=== PATIENT | male | born 1945 | race African-American/Black ===

== ENCOUNTER 2017-02-04 13:18 | Emergency (ER) | payer MEDICARE, OTHER ==
[~2017-02-04] VITALS: Ht 175.3 cm; Wt 81.0 kg
[2017-02-04] MEDS ORDERED: LISINOPRIL 10MG TABLET PO ONE (14:45)
[2017-02-04 16:11] VITALS: BP 160/84
== END 2017-02-04 16:12 | disposition home or self-care (01) ==
LOC: ER 13:20
DX: I10 Essential (primary) hypertension (principal)
CPT/HCPCS: 99283

== ENCOUNTER 2018-11-28 00:55 | Inpatient (IN) | payer MEDICARE, MEDICAID ==
[~2018-11-28] VITALS: Ht 175.3 cm; Wt 77.8 kg
[2018-11-28] MEDS ORDERED: SODIUM CHLORIDE 0.9% 1,000 ML IV ONE (01:41)
[2018-11-28] MEDS ORDERED: DEXTROSE 50% WATER 50ML SYRINGE IV ONE (02:00)
[2018-11-28] MEDS ORDERED: DEXTROSE 50% WATER 50ML SYRINGE IV SCH (02:15)
[2018-11-28 02:18] LABS: HEMATOCRIT. 22.9 % (42.0-52.0); HEMOGLOBIN. 8.1 g/dL (14.0-18.0); MEAN CORPUSCULAR HEMOGLOBIN 40.9 pg (28.0-32.0); MEAN CORPUSCULAR VOLUME 115.1 fL (80.0-94.0); MEAN PLATELET VOLUME 6.3 fl (7.4-10.4); PLATELET 257 x1000/uL (130-400); RED BLOOD CELL COUNT 1.99 mill/uL (4.7-6.1); RED CELL DISTRIBUTION WIDTH 13.4 % (11.6-14.6)
[2018-11-28 02:19] LABS: CHLORIDE 109 mEq/L (98-107)
[2018-11-28 02:24] LABS: ETHANOL BLOOD < 10 mg/dL
[2018-11-28 03:29] LABS: PLATELET ESTIMATE NORMAL
[2018-11-28 04:26] LABS: CLARITY URINE CLEAR (CLEAR); COLOR URINE YELLOW (YELLOW); KETONES URINE NEGATIVE (NEGATIVE); LEUKOCYTE ESTERASE URINE NEGATIVE (NEGATIVE); NITRITE URINE NEGATIVE (NEGATIVE); OCCULT BLOOD URINE NEGATIVE (NEGATIVE); PROTEIN URINE NEGATIVE (NEGATIVE); SPECIFIC GRAVITY URINE 1.011 (1.005-1.030); UROBILINOGEN URINE 0.2 E.U./dL (0.2-1.0)
[2018-11-28 04:39] LABS: *AMPHETAMINES SCREEN URINE NEGATIVE (NEGATIVE); *BARBITURATES SCREEN URINE NEGATIVE (NEGATIVE); *BENZODIAZEPINES SCREEN URINE NEGATIVE (NEGATIVE); *COCAINE SCREEN URINE NEGATIVE (NEGATIVE); METHADONE URINE SCREEN NEGATIVE (NEGATIVE)
[2018-11-28 04:40] LABS: CANNABINOID URINE SCREEN PRESUMTIVE POSITIVE (NEGATIVE); OPIATES URINE SCREEN PRESUMTIVE POSITIVE (NEGATIVE); PHENCYCLIDINE URINE SCREEN NEGATIVE (NEGATIVE)
[2018-11-28 05:10] VITALS: BP 98/44
[2018-11-28 08:00] VITALS: BP 98/51
[2018-11-28] MEDS ORDERED: ONDANSETRON HCL 4MG/2ML INJ IV PRN (08:00)
[2018-11-28] MEDS ORDERED: FILGRASTIM 300 MCG/ML VIAL SUBCUT SCH (08:00)
[2018-11-28] MEDS ORDERED: FILGRASTIM-TBO 300 MCG/0.5 ML SYRINGE SQ SCH (09:00)
[2018-11-28] MEDS: ASPIRIN 81MG EC TABLET PO SCH (09:00)
[2018-11-28 09:38] LABS: T4 FREE 1.01 ng/dL (0.76-1.46)
[2018-11-28] MEDS: ENOXAPARIN 40MG/0.4ML SYR SUBCUT SCH (11:30)
[2018-11-28] MEDS ORDERED: GADOBENATE DIMEGLUMINE 529 MG/ML 10ML IV ONE (12:15)
[2018-11-28] MEDS ORDERED: MORP30TA66 PO (12:54)
[2018-11-28] MEDS ORDERED: DOCU-150 PO (12:54)
[2018-11-28] MEDS ORDERED: PROC10TA17 PO (12:54)
[2018-11-28] MEDS ORDERED: CITA10TA9 PO (12:54)
[2018-11-28] MEDS ORDERED: SENN8.6T60 PO (12:54)
[2018-11-28] MEDS ORDERED: TRAZ-212 PO (12:54)
[2018-11-28] MEDS ORDERED: LORA0.5T2 PO (12:54)
[2018-11-28] MEDS ORDERED: ACETAMIN (12:54)
[2018-11-28] MEDS ORDERED: DIVA250T45 PO (12:54)
[2018-11-28] MEDS ORDERED: ASPI-1159 PO (12:54)
[2018-11-28] MEDS ORDERED: OXYC-515 MT (12:54)
[2018-11-28] MEDS ORDERED: FERR15DR7 PO (12:54)
[2018-11-28] MEDS ORDERED: TERA10CA4 PO (12:54)
[2018-11-28] MEDS ORDERED: SILD20TA PO (12:54)
[2018-11-28] MEDS ORDERED: GABA-531 PO (12:54)
[2018-11-28] MEDS ORDERED: CEPH500C2 PO (12:54)
[2018-11-28 13:00] VITALS: BP 112/52
[2018-11-28] MEDS: LORAZEPAM 2MG/ML CPJ IV PRN ×3 (13:43→22:28)
[2018-11-28] MEDS: THIAMINE HCL 100MG TABLET PO SCH (13:43)
[2018-11-28] MEDS: SODIUM CHLORIDE 0.9% 1,000 ML IV SCH ×2 (14:03→17:57)
[2018-11-28] MEDS: HYDROCODONE/ACETAMINOPHEN 5/325MG TABLET PO PRN ×2 (14:21→22:27)
[2018-11-28 16:00] VITALS: BP 132/54
[2018-11-28 16:55] LABS: CREATINE KINASE 66 IU/L (39-308)
[2018-11-28 16:56] LABS: CREATINE KINASE MB FRACTION < 1.0 ng/mL (0.5-3.6)
[2018-11-28] MEDS ORDERED: PROCHLORPERAZINE MALEATE 10MG TABLET PO PRN (19:00)
[2018-11-28] MEDS ORDERED: SENNOSIDES 8.6MG TABLET PO PRN (19:00)
[2018-11-28] MEDS ORDERED: SILDENAFIL CITRATE 20MG TABLET PO SCH ×2 (19:00→22:00)
[2018-11-28 20:00] VITALS: BP 152/50
[2018-11-28] MEDS ORDERED: MEDICATION NOT ON FORMULARY EA (Cephalexin Monohydrate (Cephalexin) 500 MG) PO SCH (20:45)
[2018-11-28] MEDS ORDERED: MEDICATION NOT ON FORMULARY EA (Trazodone Hcl 50 MG) PO SCH (20:45)
[2018-11-28] MEDS ORDERED: MEDICATION NOT ON FORMULARY EA (Oxycodone Hcl/Acetaminophen (Oxycodone-Acetaminophen 10- MT PRN (20:45)
[2018-11-28] MEDS ORDERED: LORAZEPAM 0.5 MG PO PRN (20:45)
[2018-11-28] MEDS ORDERED: MEDICATION NOT ON FORMULARY EA (Docusate Sodium 100 MG) PO SCH (20:45)
[2018-11-28] MEDS ORDERED: MEDICATION NOT ON FORMULARY EA (Citalopram Hydrobromide (Citalopram Hbr) 10 MG) PO SCH (20:45)
[2018-11-28] MEDS ORDERED: ZOLPIDEM TARTRATE 5MG TABLET PO PRN (20:45)
[2018-11-28] MEDS ORDERED: MEDICATION NOT ON FORMULARY EA (Terazosin Hcl 10 MG) PO SCH (21:00)
[2018-11-28] MEDS ORDERED: MEDICATION NOT ON FORMULARY EA (Gabapentin 300 MG) PO SCH (21:00)
[2018-11-28] MEDS ORDERED: LORAZEPAM 0.5MG TABLET PO PRN (21:45)
[2018-11-28] MEDS ORDERED: OXYCODONE HCL/ACETAMINOPHEN 5/325MG TABLET PO PRN (22:00)
[2018-11-28] MEDS ORDERED: TRAZODONE HCL 50MG TABLET PO PRN (22:00)
[2018-11-28] MEDS: FERROUS SULFATE 325MG TABLET PO SCH (22:27)
[2018-11-29] VITALS: BP 121/51
[2018-11-29] MEDS: SODIUM CHLORIDE 0.9% 1,000 ML IV SCH ×2 (03:52→08:51)
[2018-11-29 06:27] LABS: CHLORIDE 109 mEq/L (98-107)
[2018-11-29 06:37] LABS: CREATINE KINASE 69 IU/L (39-308)
[2018-11-29 06:40] LABS: CREATINE KINASE MB FRACTION < 1.0 ng/mL (0.5-3.6)
[2018-11-29 08:00] VITALS: BP 115/70
[2018-11-29] MEDS: THIAMINE HCL 100MG TABLET PO SCH (08:38)
[2018-11-29] MEDS: DIVALPROEX SODIUM 250MG ER TABLET PO SCH ×2 (08:39→08:52)
[2018-11-29] MEDS: FERROUS SULFATE 325MG TABLET PO SCH (08:39)
[2018-11-29] MEDS: ENOXAPARIN 40MG/0.4ML SYR SUBCUT SCH (08:42)
[2018-11-29] MEDS: ASPIRIN 81MG EC TABLET PO SCH (08:42)
[2018-11-29] MEDS ORDERED: DOCUSATE SODIUM 100MG CAPSULE PO SCH (09:00)
[2018-11-29] MEDS ORDERED: CITALOPRAM HYDROBROMIDE 10MG TABLET PO SCH (09:00)
[2018-11-29] MEDS ORDERED: MEDICATION NOT ON FORMULARY EA (Morphine Sulfate 30 MG) PO SCH (09:00)
[2018-11-29] MEDS ORDERED: FERROUS SULFATE 65 MG PO SCH (09:00)
[2018-11-29] MEDS ORDERED: MORPHINE SULFATE 30MG TABLET SR PO SCH (09:00)
[2018-11-29 09:24] LABS: BASOPHILS % 0.3 % (0.0-2.0); EOSINOPHILS % 0.1 % (0.0-5.0); HEMATOCRIT. 26.9 % (42.0-52.0); HEMOGLOBIN. 9.2 g/dL (14.0-18.0); LYMPHOCYTES % 9.1 % (20.0-50.0); MEAN CORPUSCULAR HEMOGLOBIN 36.1 pg (28.0-32.0); MEAN PLATELET VOLUME 7.4 fl (7.4-10.4); MONOCYTES % 6.4 % (2.0-8.0); NEUTROPHILS % 84.1 % (40.0-76.0); PLATELET 220 x1000/uL (130-400); RED BLOOD CELL COUNT 2.53 mill/uL (4.7-6.1); RED CELL DISTRIBUTION WIDTH 13.3 % (11.6-14.6)
[2018-11-29] MEDS: LORAZEPAM 2MG/ML CPJ IV PRN (09:24)
[2018-11-29] MEDS: CEPHALEXIN 250MG CAPSULE PO SCH ×2 (09:30→12:26)
[2018-11-29 12:00] VITALS: BP 130/72
[2018-11-29] MEDS ORDERED: TERAZOSIN HCL 5MG CAPSULE PO SCH (21:00)
[2018-11-29] MEDS ORDERED: GABAPENTIN 300MG CAPSULE PO SCH (21:00)
== END 2018-11-29 13:13 | disposition home or self-care (01) | DRG 73 ==
LOC: ER 00:55 → EDBEDREQTM 02:40 → EDBEDREQ 02:40 → ENRESERV 03:40 → EDBEDREQ 04:50 → EDBEDREQTM 04:50 → 6WST 05:26
PROVIDERS: ADMIT Internal Medicine Nephrology; ATTEND Internal Medicine Nephrology
DX: G90.8 Other disorders of autonomic nervous system (principal); E43 Unspecified severe protein-calorie malnutrition; C15.9 Malignant neoplasm of esophagus, unspecified; C78.00 Secondary malignant neoplasm of unspecified lung; C78.7 Secondary malignant neoplasm of liver and intrahepatic bile duct; E46 Unspecified protein-calorie malnutrition; E86.9 Volume depletion, unspecified; D63.8 Anemia in other chronic diseases classified elsewhere; D70.9 Neutropenia, unspecified; Z51.5 Encounter for palliative care; F17.210 Nicotine dependence, cigarettes, uncomplicated; I10 Essential (primary) hypertension; J44.9 Chronic obstructive pulmonary disease, unspecified; N40.0 Benign prostatic hyperplasia without lower urinary tract symptoms; W19.XXXA Unspecified fall, initial encounter; Y93.89 Activity, other specified; Y92.89 Other specified places as the place of occurrence of the external cause; Y99.8 Other external cause status; Z92.21 Personal history of antineoplastic chemotherapy; Z79.82 Long term (current) use of aspirin; Z79.899 Other long term (current) drug therapy; Z68.25 Body mass index [BMI] 25.0-25.9, adult
CPT/HCPCS: 36415; 70553; 71045; 78582; 80048; 80061; 80305; 80320; 82140; 82550; 82553; 82962; 83036; 83605; 83735; 83880; 84439; 84443; 84484; 85379; 93005; 93306; 93970; 97162; 99285; A9558; A9577; J1442; J1650; J2060; J7030; G0480

== ENCOUNTER 2019-01-01 18:50 | Inpatient (IN) | payer MEDICARE, MEDICAID ==
[~2019-01-01] VITALS: Ht 162.6 cm; Wt 62.6 kg
[~2019-01-01 18:50] MED LIST: ACETAMIN; ASPI-1159 PO; CEPH500C2 PO; CITA10TA9 PO; DIVA250T45 PO; DOCU-150 PO; FERR15DR7 PO; GABA-531 PO; LORA0.5T2 PO; MORP30TA66 PO; OXYC-515 MT; PROC10TA17 PO; SENN8.6T60 PO; SILD20TA PO; TERA10CA4 PO; TRAZ-212 PO
[2019-01-01] MEDS ORDERED: ONDANSETRON HCL 4MG/2ML INJ IV STA (22:16)
[2019-01-01] MEDS ORDERED: MORPHINE SULFATE 4 MG/ML CPJ (NOT FOR IM USE) IV STA (22:16)
[2019-01-01] MEDS ORDERED: SODIUM CHLORIDE 0.9% 1,000 ML IV ONE (22:16)
[2019-01-02 00:54] LABS: CHLORIDE 102 mEq/L (98-107)
[2019-01-02 01:14] LABS: BASOPHILS % 0.7 % (0.0-2.0); EOSINOPHILS % 0.6 % (0.0-5.0); HEMOGLOBIN. 9.5 g/dL (14.0-18.0); LYMPHOCYTES % 36.8 % (20.0-50.0); MEAN CORPUSCULAR HEMOGLOBIN 31.4 pg (28.0-32.0); MEAN CORPUSCULAR VOLUME 92.9 fL (80.0-94.0); MONOCYTES % 10.5 % (2.0-8.0); NEUTROPHILS % 51.4 % (40.0-76.0); PLATELET 325 x1000/uL (130-400); RED BLOOD CELL COUNT 3.01 mill/uL (4.7-6.1); RED CELL DISTRIBUTION WIDTH 12.9 % (11.6-14.6)
[2019-01-02] MEDS ORDERED: LORAZEPAM 2MG/ML CPJ IV ONE (01:15)
[2019-01-02 01:26] LABS: CLARITY URINE CLOUDY (CLEAR); COLOR URINE DARK YELLOW (YELLOW); KETONES URINE TRACE (NEGATIVE); LEUKOCYTE ESTERASE URINE 2+ (NEGATIVE); NITRITE URINE POSITIVE (NEGATIVE); OCCULT BLOOD URINE TRACE (NEGATIVE); PH URINE 5.5 (4.5-8.0); PROTEIN URINE TRACE (NEGATIVE); SPECIFIC GRAVITY URINE 1.024 (1.005-1.030)
[2019-01-02] MEDS ORDERED: CEFTRIAXONE 1 G PREMIX 50 ML IV ONE (01:45)
[2019-01-02 01:54] LABS: INR 1.1; PARTIAL THROMBOPLASTIN TIME 27.6 sec (23.4-31.0); PROTHROMBIN TIME 11.3 sec (9.6-11.0)
[2019-01-02 06:40] VITALS: BP 130/80
[2019-01-02 08:00] VITALS: BP 158/68
[2019-01-02] MEDS ORDERED: DEXTROSE 5% WATER 1,000 ML IV SCH (08:00)
[2019-01-02] MEDS ORDERED: DIPHENHYDRAMINE 50MG/ML VIAL IV PRN (08:30)
[2019-01-02] MEDS ORDERED: ONDANSETRON HCL 4MG/2ML INJ IV PRN (08:30)
[2019-01-02] MEDS ORDERED: HYDROCODONE/ACETAMINOPHEN 5/325MG TABLET PO PRN (08:30)
[2019-01-02] MEDS ORDERED: ACETAMINOPHEN 650MG SUPP PR PRN (08:30)
[2019-01-02] MEDS ORDERED: GUAIFENESIN 200MG/10ML SUGAR FREE UDC PO PRN (08:30)
[2019-01-02] MEDS ORDERED: CLONIDINE 0.1MG TABLET PO PRN (08:30)
[2019-01-02] MEDS ORDERED: ACETAMINOPHEN 325MG TABLET PO PRN (08:30)
[2019-01-02] MEDS ORDERED: ACETAMINOPHEN 650MG/20.3ML UDC GT PRN (08:30)
[2019-01-02] MEDS ORDERED: IPRATROPIUM/ALBUTEROL 0.5-3(2.5)MG/3ML NEB INH PRN (08:30)
[2019-01-02] MEDS ORDERED: NA PHOS,M-B/NA PHOS,DI-BA ENEMA 118ML PR PRN (10:00)
[2019-01-02] MEDS ORDERED: DOCUSATE SODIUM 100MG CAPSULE PO PRN (10:00)
[2019-01-02] MEDS ORDERED: MAGNESIUM/ALUMINUM HYDROXIDE/SIMETHICONE 30ML UDC PO PRN (10:00)
[2019-01-02] MEDS: DEXT 5%/0.45% NACL 1000ML 1,000 ML IV SCH (10:27)
[2019-01-02] MEDS: ENOXAPARIN 40MG/0.4ML SYR SUBCUT SCH (10:29)
[2019-01-02 10:55] VITALS: BP 158/68
[2019-01-02 11:59] LABS: BASOPHILS % 0.6 % (0.0-2.0); EOSINOPHILS % 0.2 % (0.0-5.0); HEMATOCRIT. 30.4 % (42.0-52.0); HEMOGLOBIN. 10.3 g/dL (14.0-18.0); MEAN CORPUSCULAR HEMOGLOBIN 31.3 pg (28.0-32.0); MEAN CORPUSCULAR VOLUME 92.6 fL (80.0-94.0); MEAN PLATELET VOLUME 6.7 fl (7.4-10.4); NEUTROPHILS % 61.2 % (40.0-76.0); PLATELET 342 x1000/uL (130-400); RED BLOOD CELL COUNT 3.28 mill/uL (4.7-6.1)
[2019-01-02 12:00] VITALS: BP 117/68
[2019-01-02 12:07] LABS: CHLORIDE 102 mEq/L (98-107)
[2019-01-02 13:11] LABS: *AMPHETAMINES SCREEN URINE NEGATIVE (NEGATIVE); CANNABINOID URINE SCREEN PRESUMTIVE POSITIVE (NEGATIVE); METHADONE URINE SCREEN NEGATIVE (NEGATIVE); OPIATES URINE SCREEN PRESUMTIVE POSITIVE (NEGATIVE); PHENCYCLIDINE URINE SCREEN NEGATIVE (NEGATIVE)
[2019-01-02 13:12] LABS: *BENZODIAZEPINES SCREEN URINE PRESUMTIVE POSITIVE (NEGATIVE); *COCAINE SCREEN URINE NEGATIVE (NEGATIVE)
[2019-01-02 13:13] LABS: *BARBITURATES SCREEN URINE NEGATIVE (NEGATIVE)
[2019-01-02 16:00] VITALS: BP 145/82
[2019-01-02] MEDS ORDERED: SENNOSIDES 8.6MG TABLET PO PRN (17:30)
[2019-01-02] MEDS ORDERED: MEDICATION NOT ON FORMULARY EA (Oxycodone Hcl/Acetaminophen (Oxycodone-Acetaminophen 10- MT PRN (17:30)
[2019-01-02] MEDS ORDERED: PROCHLORPERAZINE MALEATE 10MG TABLET PO PRN (17:30)
[2019-01-02] MEDS ORDERED: SILDENAFIL CITRATE 20MG TABLET PO SCH (17:30)
[2019-01-02] MEDS: SODIUM CHLORIDE 0.9% INJ 3ML FLUSH IVF SCH ×2 (17:53→22:06)
[2019-01-02] MEDS ORDERED: LORAZEPAM 0.5MG TABLET PO PRN (18:15)
[2019-01-02] MEDS: DOCUSATE SODIUM 100MG CAPSULE PO SCH (18:49)
[2019-01-02] MEDS: DIVALPROEX SODIUM 125MG EC TABLET PO SCH (20:00)
[2019-01-02] MEDS: TERAZOSIN HCL 5MG CAPSULE PO SCH ×2 (21:00→21:20)
[2019-01-02] MEDS: GABAPENTIN 300MG CAPSULE PO SCH ×2 (21:00→21:20)
[2019-01-02] MEDS: CITALOPRAM HYDROBROMIDE 10MG TABLET PO SCH (21:19)
[2019-01-02] MEDS: MORPHINE SULFATE 30MG TABLET SR PO SCH (21:20)
[2019-01-02] MEDS: CEFTRIAXONE 1 G PREMIX 50 ML IV SCH (21:48)
[2019-01-02] MEDS ORDERED: MIRT30TA PO (22:35)
[2019-01-03 00:13] VITALS: BP 124/69
[2019-01-03] MEDS: DEXT 5%/0.45% NACL 1000ML 1,000 ML IV SCH ×2 (00:42→18:02)
[2019-01-03 04:23] VITALS: BP 126/63
[2019-01-03] MEDS: SODIUM CHLORIDE 0.9% INJ 3ML FLUSH IVF SCH ×2 (06:00→18:02)
[2019-01-03 08:00] VITALS: BP 148/74
[2019-01-03] MEDS ORDERED: ASPIRIN 81MG TABLET PO SCH (09:00)
[2019-01-03] MEDS ORDERED: FERROUS SULFATE 325MG TABLET PO SCH (09:00)
[2019-01-03] MEDS: DOCUSATE SODIUM 100MG CAPSULE PO SCH ×2 (09:11→18:02)
[2019-01-03] MEDS: CITALOPRAM HYDROBROMIDE 10MG TABLET PO SCH (09:11)
[2019-01-03] MEDS: MORPHINE SULFATE 30MG TABLET SR PO SCH ×2 (09:12→20:13)
[2019-01-03] MEDS: ENOXAPARIN 40MG/0.4ML SYR SUBCUT SCH ×2 (09:12→09:33)
[2019-01-03 09:14] LABS: CHLORIDE 104 mEq/L (98-107)
[2019-01-03 09:21] LABS: LDL CHOLESTEROL 220 mg/dL (5-100)
[2019-01-03 09:22] LABS: HDL CHOLESTEROL 47 mg/dL (40-59)
[2019-01-03 09:29] LABS: BASOPHILS % 1.2 % (0.0-2.0); EOSINOPHILS % 0.5 % (0.0-5.0); HEMATOCRIT. 33.8 % (42.0-52.0); HEMOGLOBIN. 11.1 g/dL (14.0-18.0); LYMPHOCYTES % 36.7 % (20.0-50.0); MEAN CORPUSCULAR HEMOGLOBIN 30.5 pg (28.0-32.0); MEAN CORPUSCULAR VOLUME 92.7 fL (80.0-94.0); MEAN PLATELET VOLUME 6.8 fl (7.4-10.4); NEUTROPHILS % 52.6 % (40.0-76.0); PLATELET 313 x1000/uL (130-400); RED BLOOD CELL COUNT 3.65 mill/uL (4.7-6.1); RED CELL DISTRIBUTION WIDTH 12.9 % (11.6-14.6)
[2019-01-03] MEDS: DIVALPROEX SODIUM 125MG EC TABLET PO SCH (11:46)
[2019-01-03 12:00] VITALS: BP 116/70
[2019-01-03 20:00] VITALS: BP_SYST 155; BP_DIAS 79; BP_DIAS 89
[2019-01-03] MEDS: CEFTRIAXONE 1 G PREMIX 50 ML IV SCH (20:07)
[2019-01-03 20:13] VITALS: BP 116/70
== END 2019-01-03 21:15 | disposition home or self-care (01) | DRG 947 ==
LOC: ER 18:50 → 7WST 01-02 03:11 → EDBEDREQ 01-02 03:14 → EDBEDREQTM 01-02 03:14 → ENRESERV 01-02 05:13
PROVIDERS: ADMIT Family Medicine; ATTEND Family Medicine
DX: G89.3 Neoplasm related pain (acute) (chronic) (principal); E43 Unspecified severe protein-calorie malnutrition; C15.9 Malignant neoplasm of esophagus, unspecified; C78.7 Secondary malignant neoplasm of liver and intrahepatic bile duct; N39.0 Urinary tract infection, site not specified; C78.02 Secondary malignant neoplasm of left lung; C78.01 Secondary malignant neoplasm of right lung; R18.8 Other ascites; D63.0 Anemia in neoplastic disease; R62.7 Adult failure to thrive; I10 Essential (primary) hypertension; F32.9 Major depressive disorder, single episode, unspecified; Z85.07 Personal history of malignant neoplasm of pancreas; Z68.23 Body mass index [BMI] 23.0-23.9, adult; Z92.21 Personal history of antineoplastic chemotherapy; Z85.830 Personal history of malignant neoplasm of bone
CPT/HCPCS: 36415; 71045; 74176; 80061; 80305; 83880; 84484; 87077; 87186; 93005; 96374; 96375; 97162; 99285; C1893; J0696; J1650; J2060; J2270; J2405; J7030; J7042; J7070